=== PATIENT | male | born 1990 | race African-American/Black ===

== ENCOUNTER 2024-02-23 19:05 | Emergency (ER) | payer SELFPAY ==
[~2024-02-23] VITALS: Ht 182.9 cm; Wt 97.0 kg
[2024-02-23 19:10] VITALS: BP 123/83; PULSE 50; RESP 20; TEMP 98.6; O2SAT 99
[2024-02-23] MEDS ORDERED: LIDOCAINE HCL/EPINEPHRINE 1%-EPI 1:100,000 20 ML VIAL INFIL ONE (20:00)
[2024-02-23] MEDS ORDERED: LIDOCAINE HCL/PF 1% 10 MG/ML 5ML VIAL INFIL ONE (20:00)
[2024-02-23] MEDS ORDERED: BACITRACIN ZINC OINT UDPKT TOP ONE (20:00)
[2024-02-23] MEDS ORDERED: TETANUS, DIPHTHERIA, PERTUSSIS VAC/PF 0.5ML (>10YR OLD) IM ONE (20:00)
[2024-02-23] MEDS ORDERED: IBUP-2028 MT (21:23)
[2024-02-23] MEDS ORDERED: ACET-2708 MT (21:23)
[2024-02-23] MEDS ORDERED: AMOX1TAB16 MT (21:23)
== END 2024-02-24 00:58 | disposition home or self-care (01) ==
LOC: ER 19:05
DX: S03.2XXA Dislocation of tooth, initial encounter (principal); S01.511A Laceration without foreign body of lip, initial encounter; W18.09XA Striking against other object with subsequent fall, initial encounter; Y93.89 Activity, other specified; Y92.89 Other specified places as the place of occurrence of the external cause; Y99.8 Other external cause status
CPT/HCPCS: 12013; 99283